=== PATIENT | male | born 1970 | race Caucasian/White ===

== ENCOUNTER → 2019-02-26 | Outpatient (CLI) | payer BC | END | disposition home or self-care (01) | LOC: CFH 14:52 | PROVIDERS: ATTEND Nurse Practitioner Family | DX: R91.1 Solitary pulmonary nodule (principal); S27.321D Contusion of lung, unilateral, subsequent encounter; X58.XXXD Exposure to other specified factors, subsequent encounter | CPT/HCPCS: 71250 ==

== ENCOUNTER → 2019-09-01 | Outpatient (CLI) | payer BC | END | disposition home or self-care (01) | LOC: CFH 15:56 | PROVIDERS: ATTEND Nurse Practitioner Family | DX: S27.321D Contusion of lung, unilateral, subsequent encounter (principal); E04.1 Nontoxic single thyroid nodule | CPT/HCPCS: 71250 ==